=== PATIENT | female | born 1950 | race Caucasian/White ===

== ENCOUNTER 2017-06-09 10:21 | Inpatient (IN) | payer OTHER, MEDICAID ==
[~2017-06-09] VITALS: Ht 165.1 cm; Wt 86.2 kg
--- NOTE | ~2017-06-09 | PR ---
[place], [place] PROGRESS NOTE NAME: FRANK BEAN UNIT #: [id number] ROOM: 312 DOCTOR: SAM GARCIA MD BIRTHDATE: [birth year] DOS: 06/12/2017 CHIEF COMPLAINT: "I signed myself in, I think I wanna go now." SUMMARY OF THE VISIT: The patient was interviewed in the dining area. She reports incorrectly that she signed herself in and states that she is ready to return back home. She remains grossly delusional and then focused mainly on the drug dealers that were pumping noxious fumes into her neighborhood that was deliberately meant to get people sick. She remains grossly psychotic. She is episodically compliant with her medicine. MENTAL STATUS: She is alert and oriented with time gaps. Mood does seem to be overwhelmingly depressed and anxious and she is very delusional and psychotic. Short term memory, intermediate memory and long-term memory are intact. PLAN: Routine screening examination showed her to have a low vitamin D level of 15.8. So, I will augment with vitamin D 50,000 International Units weekly. She has been taking her Risperdal M-Tab, so I will go ahead and load her tomorrow with Invega Sustenna 234 mg IM, planning to reload with 156 mg and then maintain at that same dose. We will engage in individual and hood milieu activity, returning to the least restrictive environment when stable. SAM GARCIA MD CM:PNTRANS [id number] SAM GARCIA MD 06/12/17 1050 interface
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
--- NOTE | ~2017-06-09 | PR ---
[place], [place] PROGRESS NOTE NAME: FRANK BEAN UNIT #: [id number] ROOM: 312 DOCTOR: LESLIE MAGANA MD BIRTHDATE: [birth year] DOS: 06/11/2017 SUBJECTIVE: The patient seen and spoke with the staff. Per staff, the patient is still refusing medication. Delusional and paranoid, but no behavior problems or issues. The patient was pleasant and cooperative. She was in the day area. She said that she is doing fine, got upset when I asked her to take medication. She talked about that gangs are in her neighborhood and no one believes her. She also believes that people are following her. She denied any problem with sleep or appetite. MENTAL STATUS EXAMINATION: Pleasant and cooperative. Described her mood as "fine"." Affect was broad range labile. Thought process is goal directed. No flight of ideas, loosening of association. She denied auditory or visual hallucination. She is still delusional and paranoid. She denied suicidal ideation, intent or plan. She also denies homicidal ideation, intent or plan. Insight and judgment are impaired. PLAN: 1. Continue to educate the patient regarding the need for medication. 2. Encourage activities and groups. 3. We need to get court order to give her medications against her will. LESLIE MAGANA MD CM:PNTRANS [phone] LESLIE MAGANA MD 06/11/172242 interface
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
--- NOTE | ~2017-06-09 | PR ---
[place], [place] PROGRESS NOTE NAME: FRANK BEAN UNIT #: [id number] ROOM: 312 DOCTOR: PENELOPE TBOAR DO BIRTHDATE: [birth year] DOS: 06/14/2017 CHIEF COMPLAINT: "My ears are still ringing." SUMMARY OF VISIT: The patient was interviewed in the dining room area. She had completed her breakfast. She states that she is still somewhat dizzy, has some ringing in her bilateral ears, it was difficult to sleep due to her stuffiness. Per staff, she has taken her medication. MENTAL STATUS EXAMINATION: She is alert and oriented with time gaps. Mood seems to be overwhelmed, mainly depressed. She has anxiety with delusions and some psychosis. Short term memory is intact along with intermediate and long-term. PLAN: We will start Rozerem 8 mg at night to increase her ability to sleep. We will monitor her and continue her current psychotropic regimen. We will continue to engage her in individual and group activities with the plan to return her to least restrictive environment when psychiatrically stable. PENELOPE TOBAR DO SAM GARCIA MD CM:PNDONAVON [id number] PENELOPE TOBAR DO 06/14/17 1154 interface
--- NOTE | ~2017-06-09 | DS ---
[place], [place] DISCHARGE SUMMARY [id number] UN[facility] #: [id number] ROOM: 312 DOCTOR: SAM GARCIA MD BIRTHDATE: [birth year] DOS: 06/15/2017 CHIEF COMPLAINT: "They are putting chemicals in the area around my home. It is all the drug dealer's fault." HISTORY OF PRESENT ILLNESS: This is a 67-year-old white female with a reported history of schizophrenia and medication noncompliance. The patient was brought in to the emergency room by EMS at the request of the patient's sister. The patient has become increasingly psychotic, delusional and paranoid. The patient believes that her neighborhood is infested with drugs and people are spraying the area with poisonous gases causing her to be sick. She is fearful of her life. Once in the emergency room, she was medically cleared and then admitted to the [facility] for further stabilization. The patient apparently has had previous psychiatric admissions in [place], but has been episodically noncompliant with her meds. PAST MEDICAL HISTORY: Remarkable for hypertension. SUMMARY OF HOSPITAL COURSE: The patient was admitted to the unit where she was found to be very paranoid and delusional at first. She was started on Risperdal M-Tab 1 mg in the morning and 2 mg at night and initially grudgingly took the medicine, but did comply. After several days of complying with the medicine, the patient did soften. She did become much more rational and was able to voice positive plans for the future. She was sleeping better with the medication on board. Her appetite had improved. Her ability to attend to her activities of daily living also improved. Her overall level of paranoia lessened to the point where she voiced a readiness and a willingness to return back home stating that she felt safe there and would remain compliant with her medications. The patient was discharged then back home on June 15. MENTAL STATUS AT DISCHARGE: The patient is alert and oriented times 3. Mood does seem to be strongly trending towards euthymia. Affect is much more appropriate. There is no symptom suggestive of job or hypomania. Her psychotic symptoms had lessened in frequency and intensity. She had no suicidal thoughts, homicidal thoughts or any self-injurious thoughts. Memory for the most part was intact. DIAGNOSIS AT DISCHARGE: Schizophrenia, chronic undifferentiated type with an acute exacerbation. PLAN: The patient is to return home. All of her prescriptions have been printed and will be sent with her. She was medically and psychiatrically stable. Her biopsychosocial needs will be adequately met by the community at large. [place], [place] DISCHARGE SUMMARY NAME: FRANK BEAN UNIT #: [id number] ROOM: 312 DOCTOR: SAM GARCIA MD BIRTHDATE: [birth year] SAM GARCIA MD CM:DISCHARG [id number] SAM GARCIA MD 06/15/17 1225 interface
[2017-06-09 10:48] LABS: HEMATOCRIT 44.5 % (37.0-47.0); HEMOGLOBIN 14.8 g/dl (12.0-16.0); MEAN CELL VOLUME 89.5 fl (81.0-99.0); MEAN CORPUSCULAR HGB 29.8 pg (27.0-31.0); MEAN CORPUSCULAR HGB CONC 33.3 g/dl (33.0-37.0); MEAN PLATELET VOLUME 11.6 fl (9.6-12.3); PLATELET COUNT AUTOMATED 207 10*3/uL (130-400); RED BLOOD COUNT 4.97 10*6/uL (4.10-5.10); RED CELL DISTRI WIDTH 12.9 % (0-14.5); WHITE BLOOD COUNT 8.5 10*3/uL (4.8-10.8)
[2017-06-09 11:05] LABS: ALBUMIN 3.8 gm/dl (3.1-4.5); ALKALINE PHOSPHATASE 81 U/L (45-117); BUN 12 mg/dl (7-24); CHLORIDE 102 mmol/L (98-107); CREATININE 1.14 mg/dL (0.55-1.02); POTASSIUM 3.9 mmol/L (3.5-5.1); SGOT/AST 25 IU/L (3-35); SGPT/ALT 20 U/L (12-78); SODIUM 137 mmol/L (136-145); TOTAL PROTEIN 7.5 gm/dL (6.4-8.2)
[2017-06-09 11:07] LABS: ACETAMINOPHEN (TYLENOL) < 2.0 ug/ml (10-30)
[2017-06-09 11:13] LABS: ETHYL ALCOHOL < 3.0 mg/dl (<3)
[2017-06-09 11:14] LABS: TOTAL CELLS COUNTED 100 #CELLS
[2017-06-09 11:15] LABS: PLATELET SUFFICIENCY NORMAL (NORMAL)
[2017-06-09 11:20] LABS: BILIRUBIN NEGATIVE (NEGATIVE); BLOOD TRACE-INTACT (NEGATIVE); CLARITY CLEAR (CLEAR); COLOR YELLOW (YELLOW); GLUCOSE NEGATIVE (NEGATIVE); KETONE NEGATIVE (NEGATIVE); LEUKO ESTERASE TRACE (NEGATIVE); NITRITE NEGATIVE (NEGATIVE); UROBILINOGEN 0.2 E.U./dl (0.2-1.0)
[2017-06-09 11:22] LABS: URINE AMPHETAMINES < 1000 (1000ng/ml); URINE BARBITURATES < 200 (200ng/ml); URINE BENZODIAZEPINES < 200 (200ng/ml); URINE CANNABINOIDS (THC) < 50 (50ng/ml); URINE COCAINE < 300 (300ng/ml); URINE METHADONE < 300 (300ng/ml); URINE OPIATES < 300 (300ng/ml)
[2017-06-09 11:29] LABS: URINE PHENCYCLIDINE < 25 (25ng/ml)
[2017-06-09 11:32] LABS: RBC 0-2 rbc/hpf (0-2); WBC 0-2 wbc/hpf (0-5)
[2017-06-09 11:44] VITALS: BP 180/102
[2017-06-09 12:14] VITALS: BP 170/93
[2017-06-09 13:40] VITALS: BP 168/87
[2017-06-09 14:20] VITALS: BP 171/84
[2017-06-09 15:23] VITALS: BP 152/77
[2017-06-09 21:12] VITALS: BP 165/85
[2017-06-10 08:00] VITALS: BP 135/78
[2017-06-10 08:13] LABS: THYROID STIM HORMONE (HS) 7.22 uIU/ml (0.358-4.75)
[2017-06-10 08:51] LABS: VITAMIN D, 25-HYDROXY 15.8 ng/mL (30-100)
[2017-06-10 09:19] VITALS: BP 135/78
[2017-06-10 19:50] VITALS: BP 129/68
[2017-06-11 07:57] VITALS: BP 127/77
[2017-06-11 20:37] VITALS: BP 150/80
[2017-06-12 07:52] VITALS: BP 125/76
[2017-06-12 21:22] VITALS: BP 147/82
[2017-06-13 05:15] VITALS: BP 122/78
[2017-06-13 08:07] VITALS: BP 133/76
[2017-06-13 20:43] VITALS: BP 140/77
[2017-06-14 08:00] VITALS: BP 106/62; BP 122/83
[2017-06-14 20:00] VITALS: BP 120/69
[2017-06-15 08:48] VITALS: BP 112/64
[2017-06-15 08:59] VITALS: BP 112/64
[2017-06-15] MEDS ORDERED: RISPERIDONE M-TA1 MG BC ×2 (12:02)
[2017-06-15] MEDS ORDERED: DIPHENHYDRAMINE25 M2 PO (15:23)
[2017-06-15] MEDS ORDERED: SEPTDS PO (15:23)
[2017-06-15] MEDS ORDERED: VITAMIN D-32000 UNIT PO (15:23)
[2017-06-15] MEDS ORDERED: DEBROX 15 ML 1515 ML OT (15:23)
[2017-06-15] MEDS ORDERED: LISINOPRIL5 MG PO (15:23)
== END 2017-06-15 17:58 | disposition home or self-care (01) | DRG 885 ==
LOC: ED 10:21 → 3N 13:51
PROVIDERS: Nurse Practitioner Family; Psychiatry & Neurology Psychiatry
DX: F20.0 Paranoid schizophrenia (principal); D72.1 Eosinophilia; R65.10 Systemic inflammatory response syndrome (SIRS) of non-infectious origin without acute organ dysfunction; N39.0 Urinary tract infection, site not specified; Z91.14 Patient's other noncompliance with medication regimen; I10 Essential (primary) hypertension; D72.810 Lymphocytopenia; D72.9 Disorder of white blood cells, unspecified; R73.9 Hyperglycemia, unspecified; E66.09 Other obesity due to excess calories; Z68.31 Body mass index [BMI] 31.0-31.9, adult; Z87.891 Personal history of nicotine dependence; Z82.49 Family history of ischemic heart disease and other diseases of the circulatory system; Z80.6 Family history of leukemia; Z81.1 Family history of alcohol abuse and dependence; Z81.8 Family history of other mental and behavioral disorders; Z82.5 Family history of asthma and other chronic lower respiratory diseases

== ENCOUNTER → 2017-06-27 | Outpatient (CLI) | payer OTHER, MEDICAID ==
[~2017-06-27] MED LIST: DEBROX 15 ML 1515 ML OT; DIPHENHYDRAMINE25 M2 PO; LISINOPRIL5 MG PO; RISPERIDONE M-TA1 MG BC; SEPTDS PO; VITAMIN D-32000 UNIT PO
== END | disposition home or self-care (01) ==
LOC: RESCLI 00:49
DX: I10 Essential (primary) hypertension (principal); E03.9 Hypothyroidism, unspecified; F23 Brief psychotic disorder; E55.9 Vitamin D deficiency, unspecified

== ENCOUNTER → 2017-08-22 | Outpatient (CLI) | payer OTHER, MEDICAID ==
[2017-08-22 15:12] LABS: HEMATOCRIT 41.2 % (37.0-47.0); HEMOGLOBIN 13.5 g/dl (12.0-16.0); MEAN CELL VOLUME 90.7 fl (81.0-99.0); MEAN CORPUSCULAR HGB 29.7 pg (27.0-31.0); MEAN CORPUSCULAR HGB CONC 32.8 g/dl (33.0-37.0); MEAN PLATELET VOLUME 11.6 fl (9.6-12.3); RED BLOOD COUNT 4.54 10*6/uL (4.10-5.10); RED CELL DISTRI WIDTH 12.8 % (0-14.5); WHITE BLOOD COUNT 6.9 10*3/uL (4.8-10.8)
[2017-08-22 15:24] LABS: ALBUMIN 3.9 gm/dl (3.1-4.5); CREATININE 1.15 mg/dL (0.55-1.02); POTASSIUM 4.4 mmol/L (3.5-5.1); TOTAL PROTEIN 7.1 gm/dL (6.4-8.2)
[2017-08-22 15:54] LABS: VITAMIN D, 25-HYDROXY 24.1 ng/mL (30-100)
== END | disposition home or self-care (01) ==
LOC: RESCLI 02:35
PROVIDERS: Internal Medicine
DX: I10 Essential (primary) hypertension (principal); E03.9 Hypothyroidism, unspecified; E55.9 Vitamin D deficiency, unspecified; R53.83 Other fatigue

== ENCOUNTER → 2017-09-07 | Outpatient (CLI) | payer OTHER, MEDICAID | END | disposition home or self-care (01) | LOC: RESCLI 01:40 | DX: Z00.01 Encounter for general adult medical examination with abnormal findings (principal); I12.9 Hypertensive chronic kidney disease with stage 1 through stage 4 chronic kidney disease, or unspecified chronic kidney disease; N18.3 Chronic kidney disease, stage 3 (moderate); E55.9 Vitamin D deficiency, unspecified; Z79.899 Other long term (current) drug therapy ==